=== PATIENT | male | born 1950 | race Caucasian/White ===

== ENCOUNTER → 2016-11-08 | Outpatient (CLI) | payer OTHER | LOC: GIMAGING 11:18 | PROVIDERS: ATTEND Internal Medicine | DX: S62.611A Displaced fracture of proximal phalanx of left index finger, initial encounter for closed fracture (principal) | CPT/HCPCS: 73130-PO ==

== ENCOUNTER → 2017-10-17 | Outpatient (CLI) | payer OTHER | LOC: FIMAGING 10:47 | PROVIDERS: ATTEND Anesthesiology Pain Medicine | DX: Z13.820 Encounter for screening for osteoporosis (principal) ==